=== PATIENT | male | born 1960 | race Hispanic/Latino ===

== ENCOUNTER 2018-03-22 06:45 | Inpatient (IN) | payer OTHER, BC ==
[2018-03-18 13:21] VITALS: BMI 38.7
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
[2018-03-22] MEDS ORDERED: ceFAZolin IV 1 gm in Dextrose 2 GM/100 ML BAG IVPB ONE (08:12)
[2018-03-22] MEDS ORDERED: Lactated Ringer's 1,000 ML IV ONE ×2 (08:30→16:05)
[2018-03-22] MEDS ORDERED: Ropivacaine 0.5% 30ML IV ONE (10:27)
[2018-03-22] MEDS ORDERED: Tranexamic Acid 1,000 MG in Sodium Chloride 0.9% 100 ML IVPB ONE (10:30)
[2018-03-22] MEDS ORDERED: Midazolam 2 MG/2 ML VIAL ONE (10:46)
[2018-03-22] MEDS ORDERED: Succinylcholine Chloride 20 mg/ml Syr (5 ml) IV ONE (10:46)
[2018-03-22] MEDS ORDERED: Rocuronium 10 mg/ml (5 ml) ONE (10:46)
[2018-03-22] MEDS ORDERED: Propofol 10 mg/ml Inj (20 ML) ONE ×2 (10:46→15:01)
[2018-03-22] MEDS ORDERED: Lidocaine 4% (Laryng-O-Jet) Kit MM ONE (10:47)
[2018-03-22] MEDS ORDERED: Phenylephrine 10 mg/ml Inj ONE (10:51)
[2018-03-22] MEDS ORDERED: Sodium Chloride 0.9% 1,000 ML IV ONE (11:20)
[2018-03-22] MEDS ORDERED: Tranexamic Acid 100 mg/ml IV ONE (12:00)
[2018-03-22] MEDS ORDERED: Dexamethasone 4 mg/1 ml ONE (12:06)
[2018-03-22] MEDS: Bacitracin Ointment 30 GM TUBE ONE ×3 (12:25→14:47)
[2018-03-22] MEDS ORDERED: Morphine 4 MG/ML VIAL IVP PRN (13:19)
[2018-03-22] MEDS ORDERED: Oxycodone/Acetaminophen 5/325 mg Tab PO PRN (13:19)
[2018-03-22] MEDS ORDERED: Sevoflurane - Inhalation Anesthetic Liq (250 ml) ONE (13:35)
[2018-03-22] MEDS ORDERED: Neostigmine 1:1000 (1 mg/ml) Inj ONE (14:09)
[2018-03-22] MEDS ORDERED: Dexamethasone 4 mg/1 ml IVP PRN (15:12)
[2018-03-22] MEDS ORDERED: Lactated Ringer's 1,000 ML IV SCH (15:15)
--- NOTE | 2018-03-22 15:15 | PCM.ANESB3 ---
Femoral Nerve Block - Femoral Nerve Block Date of Procedure: 03/22/18 Anesthesiologist: Seth Rodriguez Pre-Procedure Diagnosis: L knee arthritis Post-Procedure Diagnosis: L knee arthritis Procedure Performed: Femoral Nerve Block Left - Procedure Femoral Nerve Block: The procedure was explained to the patient that it is for the post-operative pain management. Consent was obtained after a thorough discussion with the patient regarding the benefits and possible complications of local anesthetic block of the femoral nerve at the inguinal crease area. The patient was brought to the operating room and standard monitors were applied. Time-out was held with the circulating nurse to confirm the correct surgery and the appropriate block. After inducing general anesthesia, patient was placed in supine position with fully extended lower extremities and the LEFT groin exposed. The femoral artery was then carefully palpated. The ultrasound transducer was then applied to this area in the transverse plane and the femoral nerve was visualized lateral to the femoral artery and underneath the fascia iliaca. After thorough identification, the inguinal crease area was prepped with Chloroprep solution three times. At this point, a #22 gauge Stimuplex 2-inch needle was inserted immediately lateral to the femoral artery pulse at the inguinal crease and advanced perpendicularly. The needle was inserted to the ultrasound transducer in-plane towards the femoral nerve in a [id number] direction. Needle advancement was performed carefully under direct ultrasound visualization. Nerve stimulator was used and twitch of the quadriceps muscle was obtained at current of 0.4MA. After negative aspiration, 30cc of 0.5% ropivacaine was injected in 5cc aliquots. Under ultrasound guidance the local anesthetics were observed spreading below fascia iliaca and around the femoral nerve. The needle was removed intact and sterile dressing was applied. The patient had stable vital signs, was conscious and in no apparent distress. The patient tolerated the femoral nerve block well with stable vital signs and was prepared for subsequent surgery.
--- NOTE | 2018-03-22 15:16 | PCM.ANESB2 ---
Popliteal Nerve Block - Popliteal Nerve Block Date of Procedure: 03/22/18 Anesthesiologist: Seth Rodriguez Pre-Procedure Diagnosis: L knee arthritis Post-Procedure Diagnosis: L knee arthritis Procedure Performed: Popliteal Nerve Block Left - Procedure Popliteal Nerve Block: This procedure was explained to the patient that it is for post-operative pain management. Consent was obtained after a thorough discussion with the patient regarding the benefits and possible complications of local anesthetic block of the sciatic nerve at the popliteal level. The patient was brought to the operating room and standard monitors are applied. Time-out was held with the circulating nurse to confirm the correct surgery and the appropriate block. After inducing general anesthesia, patient's operative leg was gently raised and supported and the groove in between the biceps femoris and vastus lateralis muscles was carefully palpated. The skin approximately 8cm above the popliteal crease was then marked. The ultrasound transducer was then applied to the posterior thigh approximately 8cm above the popliteal crease in the transverse plane and the sciatic nerve before its division was visualized lateral to the popliteal artery and in between the bicep femoris and semimembranosus/semitendinosus muscles. After identification, the lateral portion of the thigh was prepped with Chloroprep solution three times. At this point, a # 21 gauge Stimuplex insulated 4 inch needle was inserted into pre-marked area and advanced in a perpendicular direction. The needle was inserted above the ultrasound transducer in-plane towards the sciatic nerve in a [id number] direction. Needle advancement was performed carefully under direct ultrasound visualization. After repeated negative aspiration, 30cc of 0.5% ropivacaine was injected in 5cc aliquots. Under ultrasound guidance the local anesthetics were observed surrounding sciatic nerve . The needle was removed intact and sterile dressing was applied. The patient tolerated the popliteal nerve block well with stable vital signs and was subsequently prepared for the surgery.
--- NOTE | 2018-03-22 15:31 | PCM.SURG1 ---
Surgeon's Initial Post Op Note - Surgeon's Notes Surgeon: Sadie Synthetic Cloth Binding Cutter: 1st assist B Edvin PA=- C/ 2nd assist D COLIN law Type of Anesthesia: General Endo, Spinal Anesthesia Administered By: DR Seth pal Pre-Operative Diagnosis: post traumatuic O/A L knee- tricompartmental Operative Findings: as above. severe synovitis. loose body. posterior capsular contarcture. lateral patella contracture Post-Operative Diagnosis: as above Operation Performed: L TKR. arthrotomy- synovectomy. arthrotmy=-m excision loose body. arthrotomy- psoiterior capsul;are releaase. lateral patella release. comoputer navigation ( orthoalign) Specimen/Specimens Removed: synolvium/loose body/ cartuilage bone Estimated Blood Loss: EBL {In ML}: 75 Blood Products Given: N/A Drains Used: Hemovac Post-Op Condition: Good Date of Surgery/Procedure: 03/22/18 Time of Surgery/Procedure: 12:10 (time in room 1107 anaetshesia indcution time 1107)
[2018-03-22] MEDS: HYDROmorphone 0.5 mg/0.5 ml ISec IVP PRN ×2 (16:18→16:40)
[2018-03-22] MEDS: Insulin Regular 100 units/ml SC SCH (16:30)
--- NOTE | 2018-03-22 16:42 | RAD ---
Date of service: 03/22/2018 PROCEDURE: Left Knee Radiographs. HISTORY: Pain. COMPARISON: None. FINDINGS: BONES: There is no acute displaced fracture or bone destruction. Bone alignment is normal. JOINTS: Status post total cemented knee arthroplasty. No acute complications. JOINT EFFUSION: Small suprapatellar joint effusion and air in keeping with recent surgery. OTHER FINDINGS: Postoperative changes in the periarticular soft tissues and anterior skin trevin. IMPRESSION: Status post total cemented knee arthroplasty, no acute complications. Expected postoperative changes.
[2018-03-22] MEDS: Tmp-Smz 800 mg-160 mg DS Tab PO SCH ×2 (17:00→21:32)
[2018-03-22] MEDS ORDERED: ceFAZolin IV 2 gm in Dextrose 2 GM/50 ML BAG IVPB SCH (17:00)
[2018-03-22] MEDS: Oxycodone/Acetaminophen 5/325 mg Tab PO PRN (18:12)
[2018-03-22] MEDS: Sodium Chloride 0.9% 1,000 ML IV SCH (18:28)
[2018-03-23] MEDS: Insulin Regular 100 units/ml SC SCH ×5 (00:48→21:58)
[2018-03-23] MEDS: Docusate-Senna 50 mg-8.6 mg Tab PO SCH ×2 (00:50→21:12)
[2018-03-23] MEDS: Sodium Chloride 0.9% 1,000 ML IV SCH ×2 (00:50→08:39)
[2018-03-23] MEDS ORDERED: ceFAZolin IV 2 gm in Dextrose 2 GM/50 ML BAG IVPB SCH (06:00)
[2018-03-23 06:33] LABS: HEMOGLOBIN 12.5 g/dL (12.0-18.0); MEAN CELL VOLUME 92.8 fl (80.0-94.0); MEAN CORPUSCULAR HEMOGLOBIN 30.8 pg (27.0-31.0); MEAN CORPUSCULAR HGB CONC 33.2 g/dL (33.0-37.0); RBC 4.07 Mil/uL (4.40-5.90); RED CELL DISTRIBUTION WIDTH 13.5 % (11.5-14.5); WHITE BLOOD COUNT 15.5 K/uL (4.8-10.8)
[2018-03-23 06:42] LABS: BLOOD UREA NITROGEN 17 mg/dl (9-20); CALCIUM 8.5 mg/dL (8.4-10.2); GFR NON-AFRICAN AMERICAN > 60
[2018-03-23] MEDS: Oxycodone/Acetaminophen 5/325 mg Tab PO PRN ×3 (08:35→19:54)
[2018-03-23] MEDS: Tmp-Smz 800 mg-160 mg DS Tab PO SCH ×2 (08:36→17:07)
--- NOTE | 2018-03-23 08:43 | CP.PCM.PN ---
Subjective - Date & Time of Evaluation Date of Evaluation: 03/23/18 Time of Evaluation: 07:15 - Subjective Subjective: Patient seen and examined at bedside comfortable. Pain well controlled. No acute events overnight. No new complaints. Denies CP/SOB/fever/LAINEZ. Objective - Vital Signs/Intake and Output Vital Signs (last 24 hours): Temp Pulse Resp BP Pulse Ox 98.0 F 105 H 20 112/71 94 L 03/23/18 07:51 03/23/18 07:51 03/23/18 07:51 03/23/18 07:51 03/23/18 07:51 Intake and Output: 03/23/18 03/23/18 06:59 18:59 Output Total 155 Balance -155 - Medications Medications: Current Medications Acetaminophen (Tylenol 325mg Tab) 650 mg PO Q4 PRN PRN Reason: Fever 101 degrees fahrenheit Amlodipine Besylate (Norvasc) 5 mg PO [facility] Last Admin: 03/23/18 08:38 Dose: 5 mg Atorvastatin Calcium (Lipitor) 10 mg PO [facility] Last Admin: 03/23/18 08:38 Dose: 10 mg Enoxaparin Sodium (Lovenox) 40 mg SC Q24H [facility]; Protocol Hydromorphone HCl (Dilaudid) 1 mg IVP Q4 PRN PRN Reason: Pain, severe (8-10) Last Admin: 03/23/18 04:54 Dose: 1 mg Sodium Chloride (Sodium Chloride 0.9%) 1,000 mls @ 100 mls/hr IV .Q10H [facility] Stop: 03/23/18 13:20 Last Admin: 03/23/18 08:39 Dose: 100 mls/hr Lactated Ringer's (Lactated Ringer's) 1,000 mls @ 150 mls/hr IV .Q6H40M [facility] Insulin Human Regular (Humulin R) 0 units SC ACHS [facility]; Protocol Last Admin: 03/23/18 00:48 Dose: Not Given Metformin HCl (Glucophage) 1,000 mg PO BID [facility] Ondansetron HCl (Zofran Inj) 4 mg IVP ONCE PRN PRN Reason: Nausea/Vomiting Oxycodone/Acetaminophen (Percocet 5/325 Mg Tab) 1 tab PO Q4 PRN PRN Reason: Pain, Mild (1-3) Stop: 03/25/18 13:20 Oxycodone/Acetaminophen (Percocet 5/325 Mg Tab) 2 tab PO Q4 PRN PRN Reason: Pain, moderate (4-7) Stop: 03/25/18 13:20 Last Admin: 03/23/18 08:35 Dose: 2 tab Senna/Docusate Sodium (Senokot S 50 Mg-8.6 Mg) 2 tab PO HS [facility] Last Admin: 03/23/18 00:50 Dose: Not Given Sitagliptin Phosphate (Januvia) 50 mg PO BID [facility] Trimethoprim/Sulfamethoxazole (Bactrim Ds Tab) 1 tab PO BID [facility]; Protocol Last Admin: 03/23/18 08:36 Dose: 1 tab - Labs Labs: 03/23/18 05:40 03/23/18 05:40 - Extremities Exam Additional comments: L knee: knee imm in place hemovac in place with minimal bloody drainage (35cc total postop) Dressings CDI sensation intact SP/DP/TN but diminished 2nd to nerve block motor intact EHL/FHL, unable to dorsiflex 2nd to nerve block pedal pulse intact calves soft NT b/l Assessment and Plan (1) Osteoarthritis of left knee Assessment & Plan: POD#1 s/p L TKA -hemovac removed -pain control -PT/OT WBAT -Knee immobilizer at night while in bed, CPM as per order -DVT ppx -plan for d/c to home today after PT session -orthopedically stable for d/c -above d/w Dr. Noel in agreement Status: Acute
[2018-03-23] MEDS ORDERED: Enoxaparin 40 mg Syringe SC SCH (09:00)
--- NOTE | 2018-03-23 10:07 | CP.PCM.PN ---
<Cong Coleman - Last Filed: 03/23/18 10:25> Subjective - Date & Time of Evaluation Date of Evaluation: 03/23/18 Time of Evaluation: 10:04 - Subjective Subjective: 58 y/o M patient seen and evaluated in the bedside 1 day S/P Left total knee replacement. Patient states that he is having mild pain with movement at the surgery site. He states that he received pain medication by the nurse today morning. He states that he ate and void. He states that he used the spirometer 3 times since yesterday. Patient denies any overnight F/N/V/C/CP/C or SOB. Patient states that he still feeling numbness in his LLE. Patient states that he decided to go home tomorrow and follow up with physical therapy on outpatient bases. Patient states that Dr. Noel resident removed the drain today morning. Objective - Vital Signs/Intake and Output Vital Signs (last 24 hours): Temp Pulse Resp BP Pulse Ox 98.0 F 105 H 20 112/71 94 L 03/23/18 07:51 03/23/18 07:51 03/23/18 07:51 03/23/18 07:51 03/23/18 07:51 Intake and Output: 03/23/18 03/23/18 06:59 18:59 Output Total 155 Balance -155 - Medications Medications: Current Medications Acetaminophen (Tylenol 325mg Tab) 650 mg PO Q4 PRN PRN Reason: Fever 101 degrees fahrenheit [facility] ([facility]) [facility] [place] [facility] [place] Admin: 03/23/18 08:38 Dose: 5 mg Atorvastatin Calcium (Lipitor) [facility] [place] [place] Last Admin: 03/23/18 08:38 Dose: 10 mg Enoxaparin Sodium (Lovenox) 40 mg SC Q24H [facility]; Protocol Hydromorphone HCl (Dilaudid) 1 mg IVP Q4 PRN PRN Reason: Pain, severe (8-10) Last Admin: 03/23/18 04:54 Dose: 1 mg Sodium Chloride (Sodium Chloride 0.9%) 1,000 mls @ 100 mls/hr IV .Q10H [facility] Stop: 03/23/18 13:20 Last Admin: 03/23/18 08:39 Dose: 100 mls/hr Lactated Ringer's (Lactated Ringer's) 1,000 mls @ 150 mls/hr IV .Q6H40M [facility] Insulin Human Regular (Humulin R) 0 units SC [facility]; Protocol Last Admin: 03/23/18 08:41 Dose: 2 units Metformin HCl (Glucophage) 1,000 mg PO BID [facility] Ondansetron HCl (Zofran Inj) 4 mg IVP ONCE PRN PRN Reason: Nausea/Vomiting Oxycodone/Acetaminophen (Percocet 5/325 Mg Tab) 1 tab PO Q4 PRN PRN Reason: Pain, Mild (1-3) Stop: 03/25/18 13:20 Oxycodone/Acetaminophen (Percocet 5/325 Mg Tab) 2 tab PO Q4 PRN PRN Reason: Pain, moderate (4-7) Stop: 03/25/18 13:20 Last Admin: 03/23/18 08:35 Dose: 2 tab Senna/Docusate Sodium (Senokot S 50 Mg-8.6 Mg) 2 tab PO [facility] Last Admin: 03/23/18 00:50 Dose: Not Given Sitagliptin Phosphate (Januvia) 50 mg PO BID [facility] Trimethoprim/Sulfamethoxazole (Bactrim Ds Tab) 1 tab PO BID [facility]; Protocol Last Admin: 03/23/18 08:36 Dose: 1 tab - Labs Labs: 03/23/18 05:40 03/23/18 05:40 - Constitutional Appears: Well, Non-toxic - Head Exam Head Exam: ATRAUMATIC, NORMOCEPHALIC - Eye Exam Eye Exam: EOMI, Normal appearance, PERRL Pupil Exam: NORMAL ACCOMODATION, PERRL - ENT Exam ENT Exam: Mucous Membranes Moist, Normal Exam - Neck Exam Neck Exam: Normal Inspection - Respiratory Exam Respiratory Exam: Clear to Ausculation Bilateral, NORMAL BREATHING PATTERN - Cardiovascular Exam Cardiovascular Exam: REGULAR RHYTHM, +S1, +S2 - GI/Abdominal Exam GI & Abdominal Exam: Soft, Normal Bowel Sounds - Extremities Exam Extremities Exam: Normal Capillary Refill Additional comments: Left LE is dressed and wrapped with morales bandage, Patient can perform active ROM with his left toes. - Back Exam Back Exam: NORMAL INSPECTION - Neurological Exam Neurological Exam: Alert, Awake, Oriented x3 Neuro motor strength exam: Left Upper Extremity: 5, Right Upper Extremity: 5, Left Lower Extremity: 5, Right Lower Extremity: 5 - Psychiatric Exam Psychiatric exam: Normal Affect, Normal Mood - Skin Skin Exam: Dry, Normal Color, Warm Assessment and Plan - Assessment and Plan (Free Text) Assessment: 58 y/o M patient seen and evaluated 1 day S/P left total knee replacement. Plan: Left knee arthritis for total knee replacement: Patient was seen and examined 1 day S/P L TKA Patient instructed to use the spirometer more frequently. Patient instructed not to put any weight on his LLE and to ambulate using crutches. Patient to be seen and evaluated by PT. Patient will F/U with PT on out patient bases. Patient to keep his LLE elevated and apply ice at the surgery site. Patient instructed to keep the dressing C/D/I. Drain Vac removed today morning by the ortho. It had minimal sanguineous dr abernathy. Ortho Reccs appreciated C/W pain pain meds as recommended. Left pre-auricular boil: Almost resolved. C/W Bactrim DS tablets BID Type II DM: Controlled. Hb A1C 6.6 Hold Janumet tablets pre-operatively. HTN: Controlled C/W amlodipine 5 mg tablets. Hyperlipidemia: Hold Lipitor 10 mg tablets pre-operatively. DVT prophylaxis: SCD for now. Lovenox 40 mg SC QD <Lacie Antunez - Last Filed: 03/23/18 16:55> Objective - Vital Signs/Intake and Output Vital Signs (last 24 hours): Temp Pulse Resp BP Pulse Ox 98 F 105 H 18 130/79 98 03/23/18 16:14 03/23/18 16:38 03/23/18 16:14 03/23/18 16:14 03/23/18 16:14 Intake and Output: 03/23/18 03/23/18 06:59 18:59 Output Total 155 Balance -155 - Medications Medications: Current Medications Acetaminophen (Tylenol 325mg Tab) 650 mg PO Q4 PRN PRN Reason: Fever 101 degrees fahrenheit Amlodipine Besylate (Norvasc) 5 mg PO QAM [facility] Last Admin: 03/23/18 08:38 Dose: 5 mg Atorvastatin Calcium (Lipitor) [facility] [place] [facility] [place] Admin: 03/23/18 08:38 Dose: 10 mg Enoxaparin Sodium (Lovenox) 40 mg SC Q24H [facility]; Protocol Last Admin: 03/23/18 13:02 Dose: 40 mg Hydromorphone HCl (Dilaudid) 1 mg IVP Q4 PRN PRN Reason: Pain, severe (8-10) Last Admin: 03/23/18 12:30 Dose: 1 mg Insulin Human Regular (Humulin R) 0 units SC [facility]; Protocol Last Admin: 03/23/18 12:22 Dose: 4 units Metformin HCl (Glucophage) 1,000 mg PO BID [facility] Ondansetron HCl (Zofran Inj) 4 mg IVP ONCE PRN PRN Reason: Nausea/Vomiting Oxycodone/Acetaminophen (Percocet 5/325 Mg Tab) 1 tab PO Q4 PRN PRN Reason: Pain, Mild (1-3) Stop: 03/25/18 13:20 Oxycodone/Acetaminophen (Percocet 5/325 Mg Tab) 2 tab PO Q4 PRN PRN Reason: Pain, moderate (4-7) Stop: 03/25/18 13:20 Last Admin: 03/23/18 14:25 Dose: 2 tab Senna/Docusate Sodium (Senokot S 50 Mg-8.6 Mg) 2 tab PO HS [facility] Last Admin: 03/23/18 00:50 Dose: Not Given Sitagliptin Phosphate (Januvia) 50 mg PO BID [facility] Trimethoprim/Sulfamethoxazole (Bactrim Ds Tab) 1 tab PO BID [facility]; Protocol Last Admin: 03/23/18 08:36 Dose: 1 tab - Labs Labs: 03/23/18 05:40 03/23/18 05:40 Attending/Attestation - Attestation I have personally seen and examined this patient.: Yes I have fully participated in the care of the patient.: Yes I have reviewed all pertinent clinical information, including history, physical exam and plan: Yes Notes (Text): Left Knee Traumatic Arthritis s/p TKA - Physical therapy working with pt - CPM started - cont Pain mgt - DVT prophylaxis with Lovenox
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
[2018-03-23] MEDS: Enoxaparin 40 mg Syringe SC SCH (13:02)
[2018-03-24 06:31] LABS: HEMOGLOBIN 12.2 g/dL (12.0-18.0); MEAN CELL VOLUME 94.2 fl (80.0-94.0); MEAN CORPUSCULAR HEMOGLOBIN 30.8 pg (27.0-31.0); MEAN CORPUSCULAR HGB CONC 32.7 g/dL (33.0-37.0); RBC 3.96 Mil/uL (4.40-5.90); RED CELL DISTRIBUTION WIDTH 13.9 % (11.5-14.5); WHITE BLOOD COUNT 11.8 K/uL (4.8-10.8)
[2018-03-24 06:57] LABS: BLOOD UREA NITROGEN 17 mg/dl (9-20); CALCIUM 8.4 mg/dL (8.4-10.2); GFR NON-AFRICAN AMERICAN 56
[2018-03-24] MEDS: Oxycodone/Acetaminophen 5/325 mg Tab PO PRN ×2 (08:15→13:26)
[2018-03-24] MEDS: Insulin Regular 100 units/ml SC SCH ×4 (08:16→21:02)
[2018-03-24] MEDS: Tmp-Smz 800 mg-160 mg DS Tab PO SCH ×2 (08:17→16:39)
[2018-03-24] MEDS ORDERED: Patient's Own Med (Sitagliptin Phos/Metformin Hcl [Janumet 50-1,000 Mg Tablet] 1 TAB) PO SCH (09:00)
--- NOTE | 2018-03-24 09:26 | CP.PCM.PN ---
Subjective - Date & Time of Evaluation Date of Evaluation: 03/24/18 Time of Evaluation: 08:30 - Subjective Subjective: ONLY COMPLAINT IS OF LEFT KNEE SURGICAL PAIN Objective - Vital Signs/Intake and Output Vital Signs (last 24 hours): Temp Pulse Resp BP Pulse Ox 97.9 F 113 H 20 146/76 93 L 03/24/18 07:58 03/24/18 07:58 03/24/18 07:58 03/24/18 07:58 03/24/18 07:58 - Medications Medications: Current Medications Acetaminophen (Tylenol 325mg Tab) 650 mg PO Q4 PRN PRN Reason: Fever 101 degrees fahrenheit Amlodipine [facility]) [facility] [place] Last Admin: 03/24/18 08:17 Dose: 5 mg Atorvastatin Calcium (Lipitor) 10 mg PO [facility] Last Admin: 03/24/18 08:18 Dose: 10 mg Enoxaparin Sodium (Lovenox) 40 mg SC Q24H [facility]; Protocol Last Admin: 03/23/18 13:02 Dose: 40 mg Hydromorphone HCl (Dilaudid) 1 mg IVP Q4 PRN PRN Reason: Pain, severe (8-10) Last Admin: 03/24/18 05:27 Dose: 1 mg Insulin Human Regular (Humulin R) 0 units SC [facility]; Protocol Last Admin: 03/24/18 08:16 Dose: 2 units Metformin HCl (Glucophage) 1,000 mg PO BID [facility] Last Admin: 03/24/18 08:17 Dose: 1,000 mg Ondansetron HCl (Zofran Inj) 4 mg IVP ONCE PRN PRN Reason: Nausea/Vomiting Oxycodone/Acetaminophen (Percocet 5/325 Mg Tab) 1 tab PO Q4 PRN PRN Reason: Pain, Mild (1-3) Stop: 03/25/18 13:20 Oxycodone/Acetaminophen (Percocet 5/325 Mg Tab) 2 tab PO Q4 PRN PRN Reason: Pain, moderate (4-7) Stop: 03/25/18 13:20 Last Admin: 03/24/18 08:15 Dose: 2 tab Senna/Docusate Sodium (Senokot S 50 Mg-8.6 Mg) 2 tab PO [facility] Last Admin: 03/23/18 21:12 Dose: Not Given Sitagliptin Phosphate (Januvia) 50 mg PO BID [facility] Last Admin: 03/24/18 08:17 Dose: 50 mg Trimethoprim/Sulfamethoxazole (Bactrim Ds Tab) 1 tab PO BID [facility]; Protocol Last Admin: 03/24/18 08:17 Dose: 1 tab - Labs Labs: 03/24/18 05:30 03/24/18 05:30 - Respiratory Exam Respiratory Exam: Clear to Ausculation Bilateral - Cardiovascular Exam Cardiovascular Exam: REGULAR RHYTHM, +S1, +S2 - Extremities Exam Additional comments: RLE WITHOUT EDEMA LLE WITH SURGICAL DRESSINGS Assessment and Plan - Assessment and Plan (Free Text) Assessment: S/P LEFT TKR HYPERTENSION HYPERLIPIDEMIA TYPE 2 DM Plan: CONTINUE LOVENOX, AMLODIPINE, ATORVASTATIN AND DM MEDS FOR REHAB
--- NOTE | 2018-03-24 09:55 | CP.PCM.DIS ---
Provider - Provider Date of Admission: 03/22/18 13:19 Attending physician: Lacie Antunez MD Consults: 03/22/18 13:19 Case Management Referral Routine Comment: Physician Instructions: Reason For Exam: Reason for Referral: Discharge Planning 03/22/18 13:27 Physician Consult Routine Comment: Consulting Provider: Rodo Noel III Consulting Physician: Rodo Noel III Reason for Consult: postop ortho mgmt 03/22/18 15:03 Cardiology Consult Routine Comment: Consulting Provider: Rip Aparicio Consulting Physician: Rip Aparicio Reason for Consult: post op mgmt Time Spent in preparation of Discharge (in minutes): 30 Hospital Course - Lab Results Lab Results: Most Recent Lab Values WBC 11.8 K/uL (4.8-10.8) H 03/24/18 05:30 RBC 3.96 Mil/uL (4.40-5.90) L 03/24/18 05:30 Hgb 12.2 g/dL (12.0-18.0) 03/24/18 05:30 Hct 37.3 % (35.0-51.0) 03/24/18 05:30 MCV 94.2 fl (80.0-94.0) H 03/24/18 05:30 MCH 30.8 pg (27.0-31.0) 03/24/18 05:30 MCHC 32.7 g/dL (33.0-37.0) L 03/24/18 05:30 RDW 13.9 % (11.5-14.5) 03/24/18 05:30 Plt Count 225 K/uL (130-400) 03/24/18 05:30 Sodium 134 mmol/l (132-148) 03/24/18 05:30 Potassium 4.2 MMOL/L (3.6-5.0) 03/24/18 05:30 Chloride 100 mmol/L (98-107) 03/24/18 05:30 Carbon Dioxide 29 mmol/L (22-30) 03/24/18 05:30 Anion Gap 9 (10-20) L 03/24/18 05:30 BUN 17 mg/dl (9-20) 03/24/18 05:30 Creatinine 1.3 mg/dl (0.8-1.5) 03/24/18 05:30 Est GFR ( Amer) > 60 03/24/18 05:30 Est GFR (Non-Af Amer) 56 03/24/18 05:30 POC Glucose (mg/dL) 175 mg/dL (65-110) H 03/24/18 05:12 Random Glucose 188 mg/dL (75-110) H 03/24/18 05:30 Calcium 8.4 mg/dL (8.4-10.2) 03/24/18 05:30 25-OH Vitamin D Total 40.0 NG/ML (30.0-100.0) 03/23/18 05:40 Blood Type A POSITIVE 03/22/18 07:55 Blood Type Confirm A POSITIVE 03/22/18 08:43 Antibody Screen Negative 03/22/18 07:55 BBK History Checked No verified bt 03/22/18 07:55 - Hospital Course Hospital Course: 58 y/o M patient with PMH of type II DM, HTN and hyperlipidemia admitted for Left TKA. Patient is 2 days S/P surgery. Patient is on percocet 325/5 mg and tylenol for pain. he is also on Lovenox 40 mg sc for DVT prophylaxis. Patient seen, evaluated and treated by PT Patient home meds continued. During his hospital course; Patient didn't have any acute events or distress. Patient discharged home today. Assessment: 58 y/o M patient seen and evaluated 2 day S/P left total knee replacement. Plan: Left knee arthritis for total knee replacement: Patient was seen and examined 2 day S/P L TKA Patient instructed not to put any weight on his LLE and to ambulate using crutches. Patient was seen, evaluated and treated by PT. Patient will F/U with PT on out patient bases. Patient to keep his LLE elevated and apply ice at the surgery site. Patient instructed to keep the dressing C/D/I. Ortho Reccs appreciated C/W pain meds as recommended. Patient to follow up with Dr. Noel upon discharge. Discharge Exam - Head Exam Head Exam: ATRAUMATIC, NORMOCEPHALIC - Eye Exam Eye Exam: EOMI, Normal appearance, PERRL Pupil Exam: NORMAL ACCOMODATION, PERRL - ENT Exam ENT Exam: Mucous Membranes Moist - Neck Exam Neck exam: Full Rom - Respiratory Exam Respiratory Exam: Clear to PA & Lateral, NORMAL BREATHING PATTERN, UNREMARKABLE - Cardiovascular Exam Cardiovascular Exam: REGULAR RHYTHM, RRR - GI/Abdominal Exam GI & Abdominal Exam: Normal Bowel Sounds, Unremarkable - Extremities Exam Additional comments: Left leg is dressed and placed in soft immobilizer brace - Back Exam Back exam: NORMAL INSPECTION - Neurological Exam Neurological exam: Alert, Oriented x3 - Psychiatric Exam Psychiatric exam: Normal Affect, Normal Mood - Skin Skin Exam: Dry, Normal Color, Warm Discharge Plan - Follow Up Plan Condition: GOOD Disposition: HOME/ ROUTINE Instructions: Osteoarthritis (DC), Total Knee Replacement (DC), Continuous Passive Motion Machine Additional Instructions: follow up with dr noel 5-7 days Referrals: Rodo Noel III, MD [Staff Provider] -
--- NOTE | 2018-03-24 10:37 | CP.PCM.PN ---
Subjective - Date & Time of Evaluation Date of Evaluation: 03/24/18 Time of Evaluation: 10:00 - Subjective Subjective: Patient seen and examined OOB to chair. Pain is moderate this AM. Had much difficulty with transferring during PT session, unable to perform stair training as of yet. No other complaints. Objective - Vital Signs/Intake and Output Vital Signs (last 24 hours): Temp Pulse Resp BP Pulse Ox 97.9 F 113 H 20 146/76 93 L 03/24/18 07:58 03/24/18 07:58 03/24/18 07:58 03/24/18 07:58 03/24/18 07:58 - Medications Medications: Current Medications Acetaminophen (Tylenol 325mg Tab) 650 mg PO Q4 PRN PRN Reason: Fever 101 degrees fahrenheit Amlodipine Besylate (Norvasc) 5 mg PO [facility] Last Admin: 03/24/18 08:17 Dose: 5 mg Atorvastatin Calcium (Lipitor) 10 mg PO [facility] Last Admin: 03/24/18 08:18 Dose: 10 mg Enoxaparin Sodium (Lovenox) 40 mg SC Q24H [facility]; Protocol Last Admin: 03/23/18 13:02 Dose: 40 mg Hydromorphone HCl (Dilaudid) 1 mg IVP Q4 PRN PRN Reason: Pain, severe (8-10) Last Admin: 03/24/18 05:27 Dose: 1 mg Insulin Human Regular (Humulin R) 0 units SC [facility]; Protocol Last Admin: 03/24/18 08:16 Dose: 2 units Metformin HCl (Glucophage) 1,000 mg PO BID [facility] Last Admin: 03/24/18 08:17 Dose: 1,000 mg Ondansetron HCl (Zofran Inj) 4 mg IVP ONCE PRN PRN Reason: Nausea/Vomiting Oxycodone/Acetaminophen (Percocet 5/325 Mg Tab) 1 tab PO Q4 PRN PRN Reason: Pain, Mild (1-3) Stop: 03/25/18 13:20 Oxycodone/Acetaminophen (Percocet 5/325 Mg Tab) 2 tab PO Q4 PRN PRN Reason: Pain, moderate (4-7) Stop: 03/25/18 13:20 Last Admin: 03/24/18 08:15 Dose: 2 tab Senna/Docusate Sodium (Senokot S 50 Mg-8.6 Mg) 2 tab PO HS [facility] Last Admin: 03/23/18 21:12 Dose: Not Given Sitagliptin Phosphate (Januvia) 50 mg PO BID [facility] Last Admin: 03/24/18 08:17 Dose: 50 mg Trimethoprim/Sulfamethoxazole (Bactrim Ds Tab) 1 tab PO BID [facility]; Protocol Last Admin: 03/24/18 08:17 Dose: 1 tab - Labs Labs: 03/24/18 05:30 03/24/18 05:30 - Extremities Exam Additional comments: L knee: hemovac site CDI Dressings CDI Dressings removed revealing Incision CDI with trevin no drainage sensation intact SP/DP/TN motor intact EHL/FHL pedal pulse intact calves soft NT b/l Assessment and Plan (1) Osteoarthritis of left knee Assessment & Plan: POD#2 s/p L TKA -pain control -PT/OT WBAT -DVT ppx -plan for d/c to home tomorrow with home PT -orthopedically stable -above d/w Dr. Noel in agreement Status: Acute
[2018-03-24] MEDS: Enoxaparin 40 mg Syringe SC SCH (13:27)
--- NOTE | 2018-03-24 14:11 | CP.PCM.PN ---
Subjective - Date & Time of Evaluation Date of Evaluation: 03/24/18 Time of Evaluation: 11:00 - Subjective Subjective: Patient seen and examined bedside . Feeling well. Anxious about discharge home since he is having some difficulty with ambulation.Complains of pain to his left knee Hemodynamically stable, afebrile Denies any CP, SOB, urinary retention Participating with PT Objective - Vital Signs/Intake and Output Vital Signs (last 24 hours): Temp Pulse Resp BP Pulse Ox 97.9 F 113 H 20 146/76 93 L 03/24/18 07:58 03/24/18 07:58 03/24/18 07:58 03/24/18 07:58 03/24/18 07:58 - Medications Medications: Current Medications Acetaminophen (Tylenol 325mg Tab) 650 mg PO Q4 PRN PRN Reason: Fever 101 degrees fahrenheit Amlodipine Besylate (Norvasc) 5 mg PO [facility] Last Admin: 03/24/18 08:17 Dose: 5 mg Atorvastatin Calcium (Lipitor) 10 mg PO [facility] Last Admin: 03/24/18 08:18 Dose: 10 mg Enoxaparin Sodium (Lovenox) 40 mg SC Q24H [facility]; Protocol Last Admin: 03/24/18 13:27 Dose: 40 mg Hydromorphone HCl (Dilaudid) 1 mg IVP Q4 PRN PRN Reason: Pain, severe (8-10) Last Admin: 03/24/18 10:38 Dose: 1 mg Insulin Human Regular (Humulin R) 0 units SC [facility]; Protocol Last Admin: 03/24/18 12:19 Dose: 3 units Metformin HCl (Glucophage) 1,000 mg PO BID [facility] Last Admin: 03/24/18 08:17 Dose: 1,000 mg Ondansetron HCl (Zofran Inj) 4 mg IVP ONCE PRN PRN Reason: Nausea/Vomiting Oxycodone/Acetaminophen (Percocet 5/325 Mg Tab) 1 tab PO Q4 PRN PRN Reason: Pain, Mild (1-3) Stop: 03/25/18 13:20 Oxycodone/Acetaminophen (Percocet 5/325 Mg Tab) 2 tab PO Q4 PRN PRN Reason: Pain, moderate (4-7) Stop: 03/25/18 13:20 Last Admin: 03/24/18 13:26 Dose: 2 tab Senna/Docusate Sodium (Senokot S 50 Mg-8.6 Mg) 2 tab PO HS [facility] Last Admin: 03/23/18 21:12 Dose: Not Given Sitagliptin Phosphate (Januvia) 50 mg PO BID [facility] Last Admin: 03/24/18 08:17 Dose: 50 mg Trimethoprim/Sulfamethoxazole (Bactrim Ds Tab) 1 tab PO BID [facility]; Protocol Last Admin: 03/24/18 08:17 Dose: 1 tab - Labs Labs: 03/24/18 05:30 03/24/18 05:30 - Constitutional Appears: Non-toxic, No Acute Distress - Head Exam Head Exam: ATRAUMATIC, NORMAL INSPECTION, NORMOCEPHALIC - Eye Exam Eye Exam: EOMI, Normal appearance, PERRL Pupil Exam: NORMAL ACCOMODATION - ENT Exam ENT Exam: Mucous Membranes Moist, Normal Exam - Neck Exam Neck Exam: Full ROM, Normal Inspection - Respiratory Exam Respiratory Exam: Clear to Ausculation Bilateral, NORMAL BREATHING PATTERN. absent: Rales, Rhonchi, Wheezes - Cardiovascular Exam Cardiovascular Exam: REGULAR RHYTHM, RRR, +S1, +S2. absent: JVD - GI/Abdominal Exam GI & Abdominal Exam: Soft, Normal Bowel Sounds. absent: Distended, Guarding, Tenderness, Rebound - Rectal Exam Rectal Exam: Deferred - Extremities Exam Extremities Exam: Normal Capillary Refill. absent: Calf Tenderness, Pedal Edema Additional comments: left knee SANJAY dressing in place pulses intact - Back Exam Back Exam: NORMAL INSPECTION - Neurological Exam Neurological Exam: Alert, Awake, CN II-XII Intact, Oriented x3 - Psychiatric Exam Psychiatric exam: Normal Affect, Normal Mood - Skin Skin Exam: Dry, Intact, Normal Color, Warm Assessment and Plan - Assessment and Plan (Free Text) Assessment: 58 y/o male with PMH left knee OA failing conservative treatment presented for elective Left TKR . 1.post op# 2 after Left TKR He is hemodynamically stable Will continue pain management Continue PT, CMP as per ortho recommendations Plan for DC home in AM Lovenox for DVT Prophylaxis incentive spirometry 2. HTN controlled Continue home meds , Norvasc 3. DM type II controlled Continue Accuchecks, Insulin coverage Metformin 4. History of boil in his cheeck On Bactrim DS PO 5. DVT prophylaxis SCD Lovenox 6. Leukocytosis most likely reactive
[2018-03-24] MEDS: Docusate-Senna 50 mg-8.6 mg Tab PO SCH (21:02)
[2018-03-25 06:31] LABS: HEMOGLOBIN 11.9 g/dL (12.0-18.0); MEAN CELL VOLUME 92.2 fl (80.0-94.0); MEAN CORPUSCULAR HGB CONC 33.7 g/dL (33.0-37.0); RBC 3.83 Mil/uL (4.40-5.90); RED CELL DISTRIBUTION WIDTH 13.6 % (11.5-14.5); WHITE BLOOD COUNT 13.2 K/uL (4.8-10.8)
[2018-03-25 07:25] VITALS: BP 122/75; PULSE 106; RESP 19; TEMP 98; O2SAT 95
--- NOTE | 2018-03-25 09:04 | CP.PCM.PN ---
Subjective - Date & Time of Evaluation Date of Evaluation: 03/25/18 Time of Evaluation: 08:00 - Subjective Subjective: Patient seen and examined at bedside comfortable. Pain much better controlled this AM. Able to transfer easier today. No new complaints. Objective - Vital Signs/Intake and Output Vital Signs (last 24 hours): Temp Pulse Resp BP Pulse Ox 98.0 F 106 H 19 122/75 95 03/25/18 07:24 03/25/18 07:24 03/25/18 07:24 03/25/18 07:24 03/25/18 07:24 - Medications Medications: Current Medications Acetaminophen (Tylenol 325mg Tab) 650 mg PO Q4 PRN PRN Reason: Fever 101 degrees fahrenheit Amlodipine Besylate (Norvasc) 5 mg PO [facility] Last Admin: 03/24/18 08:17 Dose: 5 mg Atorvastatin Calcium (Lipitor) 10 mg PO [facility] Last Admin: 03/24/18 08:18 Dose: 10 mg Enoxaparin Sodium (Lovenox) 40 mg SC Q24H [facility]; Protocol Last Admin: 03/24/18 13:27 Dose: 40 mg Hydromorphone HCl (Dilaudid) 1 mg IVP Q4 PRN PRN Reason: Pain, severe (8-10) Last Admin: 03/25/18 06:25 Dose: 1 mg Insulin Human Regular (Humulin R) 0 units SC [facility]; Protocol Last Admin: 03/24/18 21:02 Dose: Not Given Metformin HCl (Glucophage) 1,000 mg PO BID [facility] Last Admin: 03/24/18 16:39 Dose: 1,000 mg Ondansetron HCl (Zofran Inj) 4 mg IVP ONCE PRN PRN Reason: Nausea/Vomiting Oxycodone/Acetaminophen (Percocet 5/325 Mg Tab) 1 tab PO Q4 PRN PRN Reason: Pain, Mild (1-3) Stop: 03/25/18 13:20 Oxycodone/Acetaminophen (Percocet 5/325 Mg Tab) 2 tab PO Q4 PRN PRN Reason: Pain, moderate (4-7) Stop: 03/25/18 13:20 Last Admin: 03/24/18 13:26 Dose: 2 tab Senna/Docusate Sodium (Senokot S 50 Mg-8.6 Mg) 2 tab PO HS [facility] Last Admin: 03/24/18 21:02 Dose: Not Given Sitagliptin Phosphate (Januvia) 50 mg PO BID [facility] Last Admin: 03/24/18 16:38 Dose: 50 mg Trimethoprim/Sulfamethoxazole (Bactrim Ds Tab) 1 tab PO BID [facility]; Protocol Last Admin: 03/24/18 16:39 Dose: 1 tab - Labs Labs: 03/25/18 05:25 03/24/18 05:30 - Extremities Exam Additional comments: L knee: Dressings CDI sensation intact SP/DP/TN motor intact EHL/FHL pedal pulse intact calves soft NT b/l Assessment and Plan (1) Osteoarthritis of left knee Assessment & Plan: POD#3 s/p L TKA -pain controlled -PT/OT WBAT -DVT ppx -orthopedically stable for d/c home today -f/u in office next Thursday, 01/28 -above d/w Dr. Noel in agreement Status: Acute
[2018-03-25] MEDS: Tmp-Smz 800 mg-160 mg DS Tab PO SCH (09:11)
[2018-03-25] MEDS: Insulin Regular 100 units/ml SC SCH ×2 (09:12→11:51)
--- NOTE | 2018-03-25 09:52 | CP.PCM.PN ---
Subjective - Date & Time of Evaluation Date of Evaluation: 03/25/18 Time of Evaluation: 08:15 - Subjective Subjective: NO NEW COMPLAINTS Objective - Vital Signs/Intake and Output Vital Signs (last 24 hours): Temp Pulse Resp BP Pulse Ox 98.0 F 106 H 19 122/75 95 03/25/18 07:24 03/25/18 09:16 03/25/18 07:24 03/25/18 09:16 03/25/18 07:24 - Medications Medications: Current Medications Acetaminophen (Tylenol 325mg Tab) 650 mg PO Q4 PRN PRN Reason: Fever 101 degrees fahrenheit [facility]ine [facility]) [facility] Last Admin: 03/25/18 09:16 Dose: 5 mg Atorvastatin Calcium (Lipitor) 10 mg PO [facility] Last Admin: 03/25/18 09:12 Dose: 10 mg Enoxaparin Sodium (Lovenox) 40 mg SC Q24H [facility]; Protocol Last Admin: 03/24/18 13:27 Dose: 40 mg Hydromorphone HCl (Dilaudid) 1 mg IVP Q4 PRN PRN Reason: Pain, severe (8-10) Last Admin: 03/25/18 06:25 Dose: 1 mg Insulin Human Regular (Humulin R) 0 units SC [facility]; Protocol Last Admin: 03/25/18 09:12 Dose: 2 units Metformin HCl (Glucophage) 1,000 mg PO BID [facility] Last Admin: 03/25/18 09:11 Dose: 1,000 mg Ondansetron HCl (Zofran Inj) 4 mg IVP ONCE PRN PRN Reason: Nausea/Vomiting Oxycodone/Acetaminophen (Percocet 5/325 Mg Tab) 1 tab PO Q4 PRN PRN Reason: Pain, Mild (1-3) Stop: 03/25/18 13:20 Last Admin: 03/25/18 09:13 Dose: 1 tab Oxycodone/Acetaminophen (Percocet 5/325 Mg Tab) 2 tab PO Q4 PRN PRN Reason: Pain, moderate (4-7) Stop: 03/25/18 13:20 Last Admin: 03/24/18 13:26 Dose: 2 tab Senna/Docusate Sodium (Senokot S 50 Mg-8.6 Mg) 2 tab PO [facility] Last Admin: 03/24/18 21:02 Dose: Not Given Sitagliptin Phosphate (Januvia) 50 mg PO BID [facility] Last Admin: 03/25/18 09:13 Dose: 50 mg Trimethoprim/Sulfamethoxazole (Bactrim Ds Tab) 1 tab PO BID [facility]; Protocol Last Admin: 03/25/18 09:11 Dose: 1 tab - Labs Labs: 03/25/18 05:25 03/24/18 05:30 - Respiratory Exam Respiratory Exam: Clear to Ausculation Bilateral - Cardiovascular Exam Cardiovascular Exam: REGULAR RHYTHM, +S1, +S2 Assessment and Plan - Assessment and Plan (Free Text) Assessment: LEFT TKR HYPERTENSION HYPERLIPIDEMIA TYPE 2 DM Plan: FOR PROBABLE DISCHARGE TODAY FOR REHAB
[2018-03-25] MEDS: Enoxaparin 40 mg Syringe SC SCH (13:06)
== END 2018-03-25 14:35 | disposition home health service (06) | DRG 470 ==
LOC: H.OPSURG 06:45 → H.MEDSURG1 13:19
PROVIDERS: ADMIT Internal Medicine; ATTEND Internal Medicine
PROC: 3E0T33Z Introduction of Anti-inflammatory into Peripheral Nerves and Plexi, Percutaneous Approach (ICD-10-PCS; 2018-03-22)
PROC: 0SRD0J9 Replacement of Left Knee Joint with Synthetic Substitute, Cemented, Open Approach (ICD-10-PCS; principal; 2018-03-22 10:45)
PROC: 8E0YXBZ Computer Assisted Procedure of Lower Extremity (ICD-10-PCS; 2018-03-22 10:45)
PROC: 3E0T3BZ Introduction of Anesthetic Agent into Peripheral Nerves and Plexi, Percutaneous Approach (ICD-10-PCS; 2018-03-22 10:45)
PROC: F07Z9FZ Gait Training/Functional Ambulation Treatment using Assistive, Adaptive, Supportive or Protective Equipment (ICD-10-PCS; 2018-03-23)
DX: M17.32 Unilateral post-traumatic osteoarthritis, left knee (principal); M65.862 Other synovitis and tenosynovitis, left lower leg; E66.01 Morbid (severe) obesity due to excess calories; Z68.38 Body mass index [BMI] 38.0-38.9, adult; D72.828 Other elevated white blood cell count; E11.9 Type 2 diabetes mellitus without complications; E78.5 Hyperlipidemia, unspecified; I10 Essential (primary) hypertension; G89.29 Other chronic pain; H60.01 Abscess of right external ear; L02.02 Furuncle of face; Z79.84 Long term (current) use of oral hypoglycemic drugs; Z87.891 Personal history of nicotine dependence